=== PATIENT | female | born 1940 | race Caucasian/White ===

== ENCOUNTER 2018-12-07 16:57 | Emergency (ER) | payer MEDICARE, BC ==
[~2018-12-07] VITALS: Ht 157.5 cm; Wt 94.8 kg
[~2018-12-07 16:57] MED LIST: ADVAIR DISK1 INH; ATENOLOL25 MG PO; BL ADULT ASA81 MG PO; CIPROFLOXACN500 MG PO; LISINOPRIL10 MG PO; LOVASTATIN10 MG PO; PRILOSEC40 MG PO; RANITIDINE150 M1 PO; ZOLOFT100 MG PO
[2018-12-07 17:48] LABS: URINE BLOOD DIPSTICK TRACE-LYSED (NEGATIVE); URINE GLUCOSE - DIPSTICK 250 mg/dL (NEGATIVE); URINE KETONE TRACE mg/dL (NEGATIVE); URINE PH 5.5 (4.5-8.0); URINE PROTEIN - DIPSTICK 100 mg/dL (NEG-TRACE); URINE UROBILINOGEN - DIPSTICK >=8.0 E.U./dL (0.2)
[2018-12-07 17:54] LABS: URINE BACTERIA FEW hpf; URINE BILIRUBIN - DIPSTICK SMALL (NEGATIVE); URINE COLOR ORANGE; URINE LEUK ESTERASE MODERATE (NEGATIVE); URINE NITRITE - DIPSTICK POSITIVE (Negative); URINE SQUAMOUS EPITHELIAL CELL FEW EPI/hpf (0-FEW); URINE WBC TNTC WBC/hpf (0-5)
[2018-12-07] MEDS ORDERED: CIPROFLOXACN500 MG PO (17:59)
[2018-12-07] MEDS ORDERED: PYRIDIUM200 MG PO (17:59)
[2018-12-07 18:01] VITALS: BP 139/57
== END 2018-12-07 18:08 | disposition home or self-care (01) ==
LOC: ED 16:57
PROVIDERS: Emergency Medicine
DX: N39.0 Urinary tract infection, site not specified (principal); B96.20 Unspecified Escherichia coli [E. coli] as the cause of diseases classified elsewhere; I10 Essential (primary) hypertension

== ENCOUNTER 2018-12-17 09:48 | Emergency (ER) | payer MEDICARE, BC ==
[~2018-12-17] VITALS: Ht 157.5 cm; Wt 90.0 kg
[~2018-12-17 09:48] MED LIST changes: +PYRIDIUM200 MG PO
[2018-12-17 10:21] LABS: HEMATOCRIT 43.2 % (37.0-47.0); HEMOGLOBIN 13.6 g/dl (12.0-16.0); IMMATURE GRANULOCYTES 0.2 % (0.0-5.0); MEAN CELL VOLUME 93.3 fL CALC (80.0-100.0); MEAN CORPUSCULAR HGB 29.4 pG CALC (26.0-32.0); MEAN CORPUSCULAR HGB CONC 31.5 g/L CALC (32.0-36.0); NEUT# 2.88 thou/uL (2.00-7.15); RED BLOOD COUNT 4.63 mill/uL (4.20-5.60); RED CELL DISTRI WIDTH 12.9 % (11.5-15.5)
[2018-12-17] MEDS ORDERED: LISINOPRIL10 MG PO (10:22)
[2018-12-17] MEDS ORDERED: LOVASTATIN20 M1 PO (10:22)
[2018-12-17] MEDS ORDERED: SERTRALINE50 MG PO (10:23)
[2018-12-17] MEDS ORDERED: ASPIRIN81 MG PO (10:23)
[2018-12-17 10:30] LABS: ALKALINE PHOSPHATASE 61 u/l (38-126); ANION GAP 15 (6-22 (CALC)); BILIRUBIN, TOTAL 0.7 mg/dL (0.0-1.4); BUN 22 mg/dL (8-23); BUN/CREATININE RATIO 22 (12-20 (CALC)); CARBON DIOXIDE 26 mmol/l (22-30); CHLORIDE 102 mmol/l (95-108); GFR 53 ML/MIN (>=60 (CALC)); GFR FOR AFR.AMER. > 60 ML/MIN (>=60 (CALC)); POTASSIUM 4.5 mmol/l (3.5-5.1); SGOT/AST 40 u/l (9-36); SODIUM 138 mmol/l (137-146); TOTAL PROTEIN 6.7 g/dL (6.3-8.2)
[2018-12-17 10:32] LABS: ALBUMIN 4.3 g/dL (3.2-5.0)
[2018-12-17 14:25] VITALS: BP 112/65
== END 2018-12-17 14:25 | disposition home or self-care (01) ==
LOC: ED 09:48
PROVIDERS: Emergency Medicine
DX: R10.13 Epigastric pain (principal); K46.9 Unspecified abdominal hernia without obstruction or gangrene; I10 Essential (primary) hypertension; R07.9 Chest pain, unspecified
CPT/HCPCS: Q9967

== ENCOUNTER 2020-12-28 | Emergency (ER) | payer MEDICARE, BC ==
[~2020-12-28] MED LIST changes: +ASPIRIN81 MG PO; +LOVASTATIN20 M1 PO; +SERTRALINE50 MG PO
[2020-12-28] MEDS ORDERED: BACTROBAN TOP (14:19)
[2020-12-28] MEDS ORDERED: KEFLEX500 M1 PO (14:19)
== END 2020-12-28 14:30 | disposition home or self-care (01) ==
DX: T81.41XA Infection following a procedure, superficial incisional surgical site, initial encounter (principal); L03.115 Cellulitis of right lower limb; E11.9 Type 2 diabetes mellitus without complications; I10 Essential (primary) hypertension; E78.00 Pure hypercholesterolemia, unspecified; Y84.8 Other medical procedures as the cause of abnormal reaction of the patient, or of later complication, without mention of misadventure at the time of the procedure

== ENCOUNTER 2022-11-05 10:18 | Observation (INO) | payer MEDICARE, BC ==
[2022-11-05] VITALS (8 sets, daily range): BP systolic 100–130; BP diastolic 55–69
[~2022-11-05] VITALS: Ht 157.5 cm; Wt 94.0 kg
[~2022-11-05 10:18] MED LIST changes: +BACTROBAN TOP; +KEFLEX500 M1 PO
--- NOTE | 2022-11-05 10:18 | NUR ---
PT TO ROOM W/STEADY GAIT REFUSED WC.
[2022-11-05 11:04] LABS: HEMATOCRIT 39.8 % (37.0-47.0); HEMOGLOBIN 12.8 g/dl (12.0-16.0); LYMPH% 33.3 % (15-41); MEAN CELL VOLUME 93.9 fL CALC (80.0-100.0); MEAN CORPUSCULAR HGB 30.2 pG CALC (26.0-32.0); MEAN CORPUSCULAR HGB CONC 32.2 g/dL CAL (32.0-36.0); MONO% 7.6 % (2-13); NEUT# 1.4 thou/uL (2.00-7.15); NEUT% 59.1 % (42-76); RED BLOOD COUNT 4.24 mill/uL (4.20-5.60)
[2022-11-05 11:08] LABS: ALBUMIN 4.5 g/dL (3.2-5.0); ALKALINE PHOSPHATASE 57 u/l (38-126); ANION GAP 12 (6-22 (CALC)); BILIRUBIN, TOTAL 0.6 mg/dL (0.02-1.3); BUN 12 mg/dL (8-23); BUN/CREATININE RATIO 12 (12-20 (CALC)); CARBON DIOXIDE 27 mmol/l (22-30); CHLORIDE 100 mmol/l (95-108); GFR FOR AFR.AMER. > 60 ML/MIN (>=60 (CALC)); GFR OTHER RACES 53 ML/MIN (>=60 (CALC)); POTASSIUM 4.3 mmol/l (3.5-5.1); SGOT/AST 33 u/l (9-36); SODIUM 134 mmol/l (137-146); TOTAL PROTEIN 7.3 g/dL (6.3-8.2)
--- NOTE | 2022-11-05 11:48 | NUR ---
Reassessment of patient completed. No distress noted.
--- NOTE | 2022-11-05 12:14 | NUR ---
Reassessment of patient completed. No distress noted.
--- NOTE | 2022-11-05 12:56 | NUR ---
PATIENT UNABLE TO OBTAIN MEDS AT THIS TIME. SHE IS NOT ABLE TO RECALL THE NAMES OF HER MEDICATIONS. HER WILL BRING A LIST OF HER MEDS LATER TODAY
--- NOTE | 2022-11-05 13:41 | NUR ---
BEDSIDE REPORT GIVEN TO LUZ. PATIENT TRANSFERRED FROM WHEELCHAIR TO BED.
[2022-11-05 13:50] LABS: ANION GAP 11 (6-22 (CALC)); BUN 12 mg/dL (8-23); BUN/CREATININE RATIO 14 (12-20 (CALC)); CARBON DIOXIDE 26 mmol/l (22-30); CHLORIDE 102 mmol/l (95-108); CREATININE 0.9 mg/dL (0.5-1.0); GFR FOR AFR.AMER. > 60 ML/MIN (>=60 (CALC)); GFR OTHER RACES 60 ML/MIN (>=60 (CALC)); POTASSIUM 4.4 mmol/l (3.5-5.1); SODIUM 134 mmol/l (137-146)
[2022-11-05] MEDS ORDERED: DILT-XR120 MG PO (19:51)
[2022-11-05] MEDS ORDERED: ISOSORBIDE MONO60 MG PO (19:53)
[2022-11-05] MEDS ORDERED: ROSUVASTATIN CA20 MG MT (19:56)
[2022-11-05] MEDS ORDERED: ELIQUIS5 MG PO (19:57)
[2022-11-05] MEDS ORDERED: GLUCOSAMINE CHO1 TAB MT (19:58)
[2022-11-05] MEDS ORDERED: LISINOPRIL2.5 MG PO (19:59)
[2022-11-05] MEDS ORDERED: METFORMIN HCL500 M1 PO (20:00)
[2022-11-05] MEDS ORDERED: MEMANTINE HYDRO10 MG MT (20:00)
--- NOTE | 2022-11-05 20:00 | NUR ---
RECEIVED REPORT FROM DAY NURSE, PATIENT SITTING IN BED, IN ROOM AND GAVE THE MEDLIST, CALLED DR. LEVY ABOUT REQUEST TO CONTINUE HOME MEDS, IV ON LFA G 22 SALINE LOCK PATENT AND FLUSHES WELL, HOOKED ON TELEMETRY SR 78, APPLIED O2 @ 2LPM VIA NC, CALL LIGHT IN REACH, BED ALARM IN PLACE.
[2022-11-05] MEDS ORDERED: MONTELUKAST SOD10 MG PO (20:01)
[2022-11-05] MEDS ORDERED: OMEPRAZOLE20 MG PO (20:01)
--- NOTE | 2022-11-05 20:59 | NUR ---
pt had an 02 of 86 @1945. nurse colt cunningham @1949. nurse instructed me to retake 02 in 15 minutes.
--- NOTE | 2022-11-05 21:12 | NUR ---
pt had a glucose of 397 @2021. nurse juan antonio cunningham @2021.
--- NOTE | 2022-11-05 23:32 | NUR ---
C/O COUGH NON PRODUCTIVE, PRN ROBITUSSING GIVEN, REMAINS ON O2 @ 2LPM VIA NC CALL LIGHT IN REACH, BED ALARM IN PLACE.
[2022-11-06] VITALS (8 sets, daily range): BP systolic 109–147; BP diastolic 49–76
--- NOTE | 2022-11-06 04:07 | NUR ---
PATIENT SLEEPING IN BED, REMAINS ON O2 @ 2LPM VIA NC, NOT IN DISTRESS CALL LIGHT IN REACH.
[2022-11-06 06:32] LABS: ALBUMIN 4.2 g/dL (3.2-5.0); ALKALINE PHOSPHATASE 53 u/l (38-126); ANION GAP 12 (6-22 (CALC)); BILIRUBIN, TOTAL 0.4 mg/dL (0.02-1.3); BUN 17 mg/dL (8-23); BUN/CREATININE RATIO 20 (12-20 (CALC)); CARBON DIOXIDE 25 mmol/l (22-30); CHLORIDE 104 mmol/l (95-108); CREATININE 0.8 mg/dL (0.5-1.0); GFR FOR AFR.AMER. > 60 ML/MIN (>=60 (CALC)); GFR OTHER RACES > 60 ML/MIN (>=60 (CALC)); POTASSIUM 4.9 mmol/l (3.5-5.1); SGOT/AST 30 u/l (9-36); SODIUM 136 mmol/l (137-146); TOTAL PROTEIN 6.5 g/dL (6.3-8.2)
--- NOTE | 2022-11-06 07:55 | NUR ---
Receive report from Zbigniew LOPEZ.
--- NOTE | 2022-11-06 08:00 | NUR ---
Alert and oriented patient x3. Resting in bed, stable at the time of this note. Patient does not refer pain at the moment. No distress is observed. Patient with productive cough is checked and has PRN cough medication. Patient is oriented and educated about the nursing plan, fall precautions and medications for today. Patient refers to understanding. Safety and fall precautions in place. Call light within reach.
[2022-11-06 09:42] LABS: URINE BILIRUBIN - DIPSTICK NEGATIVE (NEGATIVE); URINE BLOOD DIPSTICK NEGATIVE (NEGATIVE); URINE COLOR YELLOW; URINE GLUCOSE - DIPSTICK 100 mg/dL (NEGATIVE); URINE KETONE NEGATIVE (NEGATIVE); URINE LEUK ESTERASE NEGATIVE (NEGATIVE); URINE NITRITE - DIPSTICK NEGATIVE (Negative); URINE PROTEIN - DIPSTICK NEGATIVE (NEG-TRACE); URINE SPECIFIC GRAVITY 1.025; URINE UROBILINOGEN - DIPSTICK 0.2 E.U./dL (0.2)
--- NOTE | 2022-11-06 12:00 | NUR ---
Patient resting in bed accompanied by her . Stable vital signs at the time of this note. Even with a productive cough and with oxygen at 2L NC. Preventive rounds every hour for safety and satisfaction of the patient's needs. Safety and fall precautions in place. Call light within in reach.
--- NOTE | 2022-11-06 16:00 | NUR ---
Patient resting in bed. Stable at this time. Medications done.
[2022-11-07 05:12] VITALS: BP 118/69
[2022-11-07 05:50] LABS: HEMATOCRIT 38.1 % (37.0-47.0); HEMOGLOBIN 12.4 g/dl (12.0-16.0); IMMATURE GRANULOCYTES 0.2 % (0.0-5.0); LYMPH% 8.9 % (15-41); MEAN CELL VOLUME 94.3 fL CALC (80.0-100.0); MEAN CORPUSCULAR HGB 30.7 pG CALC (26.0-32.0); MEAN CORPUSCULAR HGB CONC 32.5 g/dL CAL (32.0-36.0); MONO% 2.1 % (2-13); NEUT# 4.18 thou/uL (2.00-7.15); NEUT% 88.8 % (42-76); RED BLOOD COUNT 4.04 mill/uL (4.20-5.60)
[2022-11-07 06:20] LABS: ALBUMIN 4.5 g/dL (3.2-5.0); ALKALINE PHOSPHATASE 52 u/l (38-126); ANION GAP 14 (6-22 (CALC)); BILIRUBIN, TOTAL 0.3 mg/dL (0.02-1.3); BUN 21 mg/dL (8-23); BUN/CREATININE RATIO 23 (12-20 (CALC)); CARBON DIOXIDE 25 mmol/l (22-30); CHLORIDE 104 mmol/l (95-108); CREATININE 0.9 mg/dL (0.5-1.0); GFR FOR AFR.AMER. > 60 ML/MIN (>=60 (CALC)); GFR OTHER RACES 60 ML/MIN (>=60 (CALC)); POTASSIUM 4.3 mmol/l (3.5-5.1); SGOT/AST 40 u/l (9-36); SODIUM 139 mmol/l (137-146); TOTAL PROTEIN 7.1 g/dL (6.3-8.2)
[2022-11-07 06:48] VITALS: BP 126/59
--- NOTE | 2022-11-07 07:00 | NUR ---
Receive report from Katja LOPEZ.
--- NOTE | 2022-11-07 08:00 | NUR ---
Alert and oriented patient x3. Resting in bed, stable at the time of this note. Patient does not refer pain at the moment. No distress is observed. Patient is oriented and educated about the nursing plan, fall precautions and medications for today. Patient refers to understanding. Safety and fall precautions in place. Call light within reach.
[2022-11-07 08:08] VITALS: BP 126/59
[2022-11-07 10:14] VITALS: BP 128/63
[2022-11-07 10:15] VITALS: BP 128/63
[2022-11-07] MEDS ORDERED: PREDNISONE10 MG PO (10:45)
[2022-11-07] MEDS ORDERED: ZITHROMAX250 MG PO (10:45)
--- NOTE | 2022-11-07 12:20 | NUR ---
Discharge instructions given. Patient verbalizes understanding of same. Discharged in stable condition via Wheelchair to Home with staff. All belongings sent with pt.
== END 2022-11-07 12:20 | disposition home or self-care (01) ==
LOC: ED 10:18 → ED-I 12:10 → ED 12:24 → MS2 12:25
PROVIDERS: Family Medicine; Nurse Practitioner Family; ADMIT Internal Medicine; ATTEND Internal Medicine
DX: J44.1 Chronic obstructive pulmonary disease with (acute) exacerbation (principal); I10 Essential (primary) hypertension; E11.9 Type 2 diabetes mellitus without complications; I25.10 Atherosclerotic heart disease of native coronary artery without angina pectoris; E78.00 Pure hypercholesterolemia, unspecified; K21.9 Gastro-esophageal reflux disease without esophagitis; I25.2 Old myocardial infarction; Z95.5 Presence of coronary angioplasty implant and graft; Z87.891 Personal history of nicotine dependence; Z99.81 Dependence on supplemental oxygen; Z79.84 Long term (current) use of oral hypoglycemic drugs; Z86.711 Personal history of pulmonary embolism; Z79.01 Long term (current) use of anticoagulants; Z86.718 Personal history of other venous thrombosis and embolism; Z20.822 Contact with and (suspected) exposure to COVID-19
CPT/HCPCS: J1650

== ENCOUNTER 2022-11-12 13:28 | Observation (INO) | payer MEDICARE, BC ==
[~2022-11-12] VITALS: Ht 157.5 cm; Wt 91.0 kg
[2022-11-12] VITALS (8 sets, daily range): BP systolic 79–151; BP diastolic 55–70
[~2022-11-12 13:28] MED LIST changes: +DILT-XR120 MG PO; +ELIQUIS5 MG PO; +GLUCOSAMINE CHO1 TAB MT; +ISOSORBIDE MONO60 MG PO; +LISINOPRIL2.5 MG PO; +MEMANTINE HYDRO10 MG MT; +METFORMIN HCL500 M1 PO; +MONTELUKAST SOD10 MG PO; +OMEPRAZOLE20 MG PO; +PREDNISONE10 MG PO; +ROSUVASTATIN CA20 MG MT; +ZITHROMAX250 MG PO
[2022-11-12 14:31] LABS: BASO% 0.1 % (0-3); EOS% 0.1 % (0-8); HEMATOCRIT 41.7 % (37.0-47.0); HEMOGLOBIN 13.4 g/dl (12.0-16.0); IMMATURE GRANULOCYTES 4.2 % (0.0-5.0); LYMPH% 15.6 % (15-41); MEAN CELL VOLUME 92.3 fL CALC (80.0-100.0); MEAN CORPUSCULAR HGB 29.6 pG CALC (26.0-32.0); MEAN CORPUSCULAR HGB CONC 32.1 g/dL CAL (32.0-36.0); MONO% 2.7 % (2-13); NEUT# 6.01 thou/uL (2.00-7.15); NEUT% 77.3 % (42-76); RED BLOOD COUNT 4.52 mill/uL (4.20-5.60); RED CELL DISTRI WIDTH 12.6 % (11.5-15.5)
[2022-11-12 14:40] LABS: ALBUMIN 4.1 g/dL (3.2-5.0); ANION GAP 14 (6-22 (CALC)); BILIRUBIN, TOTAL 0.4 mg/dL (0.02-1.3); BUN 18 mg/dL (8-23); BUN/CREATININE RATIO 23 (12-20 (CALC)); CARBON DIOXIDE 26 mmol/l (22-30); CHLORIDE 99 mmol/l (95-108); CREATININE 0.8 mg/dL (0.5-1.0); GFR FOR AFR.AMER. > 60 ML/MIN (>=60 (CALC)); GFR OTHER RACES > 60 ML/MIN (>=60 (CALC)); POTASSIUM 4.3 mmol/l (3.5-5.1); SGOT/AST 26 u/l (9-36); SODIUM 134 mmol/l (137-146); TOTAL PROTEIN 6.7 g/dL (6.3-8.2)
[2022-11-12 15:05] LABS: ALKALINE PHOSPHATASE 82 u/l (38-126)
[2022-11-13 04:26] VITALS: BP 154/77
[2022-11-13 05:11] LABS: BASO% 0.2 % (0-3); HEMATOCRIT 36.1 % (37.0-47.0); HEMOGLOBIN 11.6 g/dl (12.0-16.0); IMMATURE GRANULOCYTES 4.8 % (0.0-5.0); LYMPH% 9.7 % (15-41); MEAN CELL VOLUME 92.6 fL CALC (80.0-100.0); MEAN CORPUSCULAR HGB 29.7 pG CALC (26.0-32.0); MEAN CORPUSCULAR HGB CONC 32.1 g/dL CAL (32.0-36.0); MONO% 2.1 % (2-13); NEUT# 3.6 thou/uL (2.00-7.15); NEUT% 83.2 % (42-76); RED BLOOD COUNT 3.9 mill/uL (4.20-5.60); RED CELL DISTRI WIDTH 12.8 % (11.5-15.5)
[2022-11-13 05:28] LABS: ALBUMIN 3.5 g/dL (3.2-5.0); ALKALINE PHOSPHATASE 69 u/l (38-126); ANION GAP 11 (6-22 (CALC)); BUN 16 mg/dL (8-23); BUN/CREATININE RATIO 22 (12-20 (CALC)); CARBON DIOXIDE 26 mmol/l (22-30); CHLORIDE 105 mmol/l (95-108); CREATININE 0.7 mg/dL (0.5-1.0); GFR FOR AFR.AMER. > 60 ML/MIN (>=60 (CALC)); GFR OTHER RACES > 60 ML/MIN (>=60 (CALC)); MAGNESIUM 1.9 mg/dL (1.6-2.3); POTASSIUM 4.6 mmol/l (3.5-5.1); SGOT/AST 22 u/l (9-36); SODIUM 137 mmol/l (137-146); TOTAL PROTEIN 5.7 g/dL (6.3-8.2)
[2022-11-13 05:32] LABS: BILIRUBIN, TOTAL 0.2 mg/dL (0.02-1.3)
[2022-11-13 06:38] VITALS: BP 171/77
[2022-11-13 10:53] VITALS: BP 134/57
[2022-11-13 14:35] VITALS: BP 136/60
[2022-11-13 17:01] LABS: HEMATOCRIT 36.5 % (37.0-47.0); HEMOGLOBIN 11.3 g/dl (12.0-16.0); MEAN CELL VOLUME 94.3 fL CALC (80.0-100.0); MEAN CORPUSCULAR HGB 29.2 pG CALC (26.0-32.0); RED BLOOD COUNT 3.87 mill/uL (4.20-5.60)
[2022-11-13 18:51] VITALS: BP 136/61
[2022-11-13 23:49] VITALS: BP 149/65
[2022-11-14 04:08] VITALS: BP 152/79
[2022-11-14 05:36] LABS: BASO% 0.2 % (0-3); HEMOGLOBIN 11.8 g/dl (12.0-16.0); IMMATURE GRANULOCYTES 3.3 % (0.0-5.0); LYMPH% 8.2 % (15-41); MEAN CELL VOLUME 92.7 fL CALC (80.0-100.0); MEAN CORPUSCULAR HGB 29.6 pG CALC (26.0-32.0); MEAN CORPUSCULAR HGB CONC 31.9 g/dL CAL (32.0-36.0); MONO% 2.4 % (2-13); NEUT# 3.87 thou/uL (2.00-7.15); NEUT% 85.9 % (42-76); RED BLOOD COUNT 3.99 mill/uL (4.20-5.60)
[2022-11-14 05:47] LABS: ALBUMIN 3.6 g/dL (3.2-5.0); ALKALINE PHOSPHATASE 55 u/l (38-126); ANION GAP 10 (6-22 (CALC)); BUN 18 mg/dL (8-23); BUN/CREATININE RATIO 23 (12-20 (CALC)); CARBON DIOXIDE 25 mmol/l (22-30); CHLORIDE 104 mmol/l (95-108); CREATININE 0.8 mg/dL (0.5-1.0); GFR FOR AFR.AMER. > 60 ML/MIN (>=60 (CALC)); GFR OTHER RACES > 60 ML/MIN (>=60 (CALC)); POTASSIUM 4.3 mmol/l (3.5-5.1); SGOT/AST 24 u/l (9-36); SODIUM 135 mmol/l (137-146); TOTAL PROTEIN 5.8 g/dL (6.3-8.2)
[2022-11-14 05:48] LABS: BILIRUBIN, TOTAL 0.4 mg/dL (0.02-1.3)
[2022-11-14 06:52] VITALS: BP 125/76
[2022-11-14 06:53] VITALS: BP 125/76
[2022-11-14 10:36] VITALS: BP 128/69
[2022-11-14] MEDS ORDERED: LEVOFLOXACIN500MG PO (10:40)
[2022-11-14] MEDS ORDERED: BIOTUSSIN PO (10:41)
[2022-11-14] MEDS ORDERED: PREDNISONE10 MG PO (10:41)
== END 2022-11-14 13:35 | disposition home or self-care (01) ==
LOC: ED 13:28 → ED-I 15:09 → ED 15:37 → MS2 15:38
PROVIDERS: Family Medicine; Internal Medicine; Nurse Practitioner Family; ADMIT Internal Medicine; ATTEND Internal Medicine
DX: J44.1 Chronic obstructive pulmonary disease with (acute) exacerbation (principal); J96.21 Acute and chronic respiratory failure with hypoxia; I10 Essential (primary) hypertension; E11.9 Type 2 diabetes mellitus without complications; K21.9 Gastro-esophageal reflux disease without esophagitis; E78.5 Hyperlipidemia, unspecified; R04.0 Epistaxis; K62.5 Hemorrhage of anus and rectum; Z86.718 Personal history of other venous thrombosis and embolism; Z79.84 Long term (current) use of oral hypoglycemic drugs; Z99.81 Dependence on supplemental oxygen; Z20.822 Contact with and (suspected) exposure to COVID-19; Z87.891 Personal history of nicotine dependence

== ENCOUNTER 2022-11-27 12:33 | Observation (INO) | payer MEDICARE, BC ==
[~2022-11-27] VITALS: Ht 157.5 cm; Wt 70.0 kg
[2022-11-27] VITALS (12 sets, daily range): BP systolic 79–148; BP diastolic 28–67
[~2022-11-27 12:33] MED LIST changes: +BIOTUSSIN PO; +LEVOFLOXACIN500MG PO
--- NOTE | 2022-11-27 13:22 | NUR ---
PATIENT AMBULATED TO ROOM REFUSING WHEELCHAIR WITH STEADY GAIT AND PHYSICIAN NOTIFIEDD OF STATUS
[2022-11-27 13:50] LABS: BASO% 0.7 % (0-3); EOS% 0.9 % (0-8); HEMATOCRIT 42.2 % (37.0-47.0); IMMATURE GRANULOCYTES 0.7 % (0.0-5.0); LYMPH% 23.5 % (15-41); MEAN CELL VOLUME 94.6 fL CALC (80.0-100.0); MEAN CORPUSCULAR HGB 29.1 pG CALC (26.0-32.0); MEAN CORPUSCULAR HGB CONC 30.8 g/dL CAL (32.0-36.0); MONO% 6.7 % (2-13); NEUT# 3.01 thou/uL (2.00-7.15); NEUT% 67.5 % (42-76); RED BLOOD COUNT 4.46 mill/uL (4.20-5.60); RED CELL DISTRI WIDTH 13.2 % (11.5-15.5)
[2022-11-27 13:59] LABS: ALKALINE PHOSPHATASE 63 u/l (38-126); ANION GAP 13 (6-22 (CALC)); BUN 15 mg/dL (8-23); BUN/CREATININE RATIO 20 (12-20 (CALC)); CARBON DIOXIDE 29 mmol/l (22-30); CHLORIDE 100 mmol/l (95-108); CREATININE 0.8 mg/dL (0.5-1.0); GFR FOR AFR.AMER. > 60 ML/MIN (>=60 (CALC)); GFR OTHER RACES > 60 ML/MIN (>=60 (CALC)); POTASSIUM 4.9 mmol/l (3.5-5.1); SGOT/AST 25 u/l (9-36); SODIUM 138 mmol/l (137-146); TOTAL PROTEIN 6.5 g/dL (6.3-8.2)
[2022-11-27 14:00] LABS: BILIRUBIN, TOTAL 0.8 mg/dL (0.02-1.3)
--- NOTE | 2022-11-27 16:31 | NUR ---
Admission Note Report Given to: KOLBY LOPEZ Transported by: Eri Transported with: Nurse Patent IV Lay Out Worker Location: [facility] [place] ROOM [id number]
--- NOTE | 2022-11-27 19:43 | NUR ---
PATIENT STATED SHE DID NOT HAVE CP SINCE BEING IN THE HOSPITAL.
--- NOTE | 2022-11-27 20:15 | NUR ---
RECEIVED REPORT FROM JESSICA DRAKE. PT SITTING ON BED LOW FOWLERS; A&O X3. EVEN AND UNLABORED RESPIRATIONS; CLEAR LUNG SOUNDS UPON AUSCULTATION. TELEMETRY IN PLACE WITH LAST READING SR-82. IV SITE HEALTHY AND PATENT. ACTIVE BOWEL SOUNDS X4 QUADRANTS. PT STATES SHE USE O2 @ HOME DURING NIGHT; PLACED 02 @2L VIA NASAL CANNULA. SAFETY PRECAUTIONS IN PLACE WITH CALL LIGHT IN REACH.
[2022-11-28 00:05] VITALS: BP 129/59
--- NOTE | 2022-11-28 00:27 | NUR ---
PT RESTING ON BED WITH EYES CLOSED, SUPINE POSITION. O2 @ 2L VIA NASAL CANNULA IN PLACE. NO DISTRESS OR PAIN NOTED. SAFETY PRECAUTIONS IN PLACE WITH CALL LIGHT IN REACH.
[2022-11-28 04:20] VITALS: BP 117/48
--- NOTE | 2022-11-28 04:20 | NUR ---
PT RESTING ON BED WITH EYES CLOSED, SUPINE POSITION. NO DISTRESS OR PAIN NOTED. O2 @2L VIA NASAL CANNULA IN PLACE. NO VOICED NEEDS AT THIS TIME. SAFETY PRECAUTIONS IN PLACE WITH CALL LIGHT IN REACH.
[2022-11-28 05:52] LABS: CHOLESTEROL HDL RATIO 3.1 (<4.4 (CALC)); MAGNESIUM 1.8 mg/dL (1.6-2.3)
[2022-11-28 07:03] VITALS: BP 129/62
--- NOTE | 2022-11-28 09:59 | NUR ---
PT SEEN AWAKE, ALERT, ORIENTED X 3. LUNGS CLEAR, 2 LPM NC. NO REPORT OF CHEST PAIN OR SHORTNESS OF BREATH. ARRIVES AT BEDSIDE.
[2022-11-28 10:22] VITALS: BP 112/56
--- NOTE | 2022-11-28 11:46 | NUR ---
PT HAS BEEN DISCHARGED TO HOME. PT VERBALIZED UNDERSTANDING OF DC INSTRUCTIONS, TAKEN BY WHEELCHAIR TO VEHICLE.
== END 2022-11-28 11:34 | disposition home or self-care (01) ==
LOC: ED 12:33 → ED-I 14:40 → ED 14:55 → MS2 14:56 → ED 14:56 → MS2 11-28 11:34
PROVIDERS: Family Medicine; ADMIT Internal Medicine; ATTEND Internal Medicine
DX: R07.89 Other chest pain (principal); I10 Essential (primary) hypertension; E11.9 Type 2 diabetes mellitus without complications; J44.9 Chronic obstructive pulmonary disease, unspecified; I25.10 Atherosclerotic heart disease of native coronary artery without angina pectoris; E78.5 Hyperlipidemia, unspecified; K21.9 Gastro-esophageal reflux disease without esophagitis; I25.2 Old myocardial infarction; Z99.81 Dependence on supplemental oxygen; Z86.718 Personal history of other venous thrombosis and embolism; Z79.01 Long term (current) use of anticoagulants; Z90.49 Acquired absence of other specified parts of digestive tract; Z79.84 Long term (current) use of oral hypoglycemic drugs; Z87.891 Personal history of nicotine dependence